=== PATIENT | female | born 1975 | race Caucasian/White ===

== ENCOUNTER 2021-10-05 15:08 | Inpatient (IN) ==
[2021-10-05] MEDS ORDERED: Naloxone 0.4 MG/ML INJ IVP PRN (20:30)
[2021-10-05] MEDS: Ringers Solution, Lactated 1,000 ML IVC SCH (21:29)
[2021-10-05 22:09] LABS: Basophils % 0.2 %; Hematocrit 36.1 % (35.3-44.9); Hemoglobin 11.5 g/dL (11.5-15.4); Immature Granulocytes % 0.4 % (0-4); Lymphocytes # 0.9 K/mcL (0.6-4.6); Lymphocytes % 9.3 %; Mean Corpuscular HGB Conc 31.9 g/dL (31.6-35.5); Mean Corpuscular Hemoglobin 31.7 pg (28.0-33.3); Mean Corpuscular Volume 99.4 fL (83.0-100.0); Mean Platelet Volume 9.5 fL (9.4-12.4); Monocytes # 0.5 K/mcL (0.0-1.3); Monocytes % 5.4 %; Neutrophils # 8.2 K/mcL (1.6-8.9); Platelet Count 138 K/mcL (140-400); Red Blood Count 3.63 M/mcL (3.82-4.97); Red Cell Distribution Width 18.1 % (11.5-14.5); Segmented Neutrophils % 84.7 %; White Blood Count 9.7 K/mcL (4.3-11.1)
[2021-10-05 22:15] LABS: VBG Ionized Calcium 1.02 mmol/L (1.15-1.35)
[2021-10-05 22:26] LABS: Calcium 7.2 mg/dL (8.6-10.3); Magnesium 1.8 mg/dL (1.6-2.6); Phosphorous 2.2 mg/dL (2.7-4.5); Potassium 3.4 mEq/L (3.5-5.1)
[2021-10-05] MEDS ORDERED: Acetaminophen 325 MG TABLET PO PRN (23:38)
[2021-10-05] MEDS: Norepinephrine 4 MG/254 ML IV.SOLN IVC SCH (23:52)
[2021-10-06] MEDS: *HR* Heparin 5,000 UNIT/ML VIAL SQ SCH ×3 (00:34→17:28)
[2021-10-06] MEDS: Calcium Gluconate 1gm/50mL 1 GM/50 ML BAG IVPB SCH ×2 (00:40→01:50)
[2021-10-06 04:56] LABS: Basophils % 0.1 %; Eosinophils % 0.1 %; Hematocrit 34.1 % (35.3-44.9); Hemoglobin 10.9 g/dL (11.5-15.4); Immature Granulocytes % 0.3 % (0-4); Lymphocytes # 0.8 K/mcL (0.6-4.6); Lymphocytes % 11.3 %; Mean Corpuscular Hemoglobin 32.1 pg (28.0-33.3); Mean Corpuscular Volume 100.3 fL (83.0-100.0); Mean Platelet Volume 9.8 fL (9.4-12.4); Monocytes # 0.5 K/mcL (0.0-1.3); Monocytes % 6.8 %; Neutrophils # 5.6 K/mcL (1.6-8.9); Platelet Count 136 K/mcL (140-400); Red Cell Distribution Width 18.3 % (11.5-14.5); Segmented Neutrophils % 81.4 %; White Blood Count 6.9 K/mcL (4.3-11.1)
[2021-10-06 05:09] LABS: VBG Ionized Calcium 1.19 mmol/L (1.15-1.35)
[2021-10-06 05:21] LABS: BUN/Creatinine Ratio 21 (6-26); Blood Urea Nitrogen 21 mg/dL (6-20); Calcium 7.8 mg/dL (8.6-10.3); Carbon Dioxide 24 mEq/L (23-29); Chloride 110 mEq/L (98-107); Glucose 98 mg/dL (70-105); Magnesium 2.4 mg/dL (1.6-2.6); Osmolality,Calculated 291 (280-300); Phosphorous 2.6 mg/dL (2.7-4.5); Potassium 4.1 mEq/L (3.5-5.1); Sodium 139 mEq/L (136-145); eGFR For African Americans > 60 (> 60); eGFR For Non-African Americans 59 (> 60)
[2021-10-06] MEDS: Ringers Solution, Lactated 1,000 ML IVC SCH ×2 (06:43→11:27)
[2021-10-06] MEDS: Loratadine 10 MG TABLET PO SCH (08:01)
[2021-10-06] MEDS: Cholecalciferol (D-3) 1,000 UNIT (25MCG) TABLET PO SCH (08:01)
[2021-10-06] MEDS: Piperacillin/Tazobactam 3.375 GM in 0.9 % Sodium Chloride Mini Bag 100 ML IVPB SCH ×2 (09:06→17:28)
[2021-10-06] MEDS: Norepinephrine 4 MG/254 ML IV.SOLN IVC SCH (12:57)
[2021-10-06] MEDS ORDERED: Lidocaine -MPF 1% 5 ML AMPUL INFILT ONE (14:01)
[2021-10-06] MEDS ORDERED: Vancomycin 1,250 MG/262.5 ML IV.SOLN IVPB ONE (16:00)
[2021-10-06] MEDS: Topiramate 100 MG TABLET PO SCH (21:25)
[2021-10-07 01:38] LABS: Basophils % 0.2 %; Eosinophils % 0.2 %; Hematocrit 38.3 % (35.3-44.9); Hemoglobin 12.4 g/dL (11.5-15.4); Immature Granulocytes % 0.3 % (0-4); Lymphocytes % 16.7 %; Mean Corpuscular HGB Conc 32.4 g/dL (31.6-35.5); Mean Corpuscular Hemoglobin 32.1 pg (28.0-33.3); Mean Corpuscular Volume 99.2 fL (83.0-100.0); Mean Platelet Volume 10.2 fL (9.4-12.4); Monocytes # 0.6 K/mcL (0.0-1.3); Monocytes % 10.7 %; Neutrophils # 4.2 K/mcL (1.6-8.9); Platelet Count 153 K/mcL (140-400); Red Blood Count 3.86 M/mcL (3.82-4.97); Red Cell Distribution Width 18.1 % (11.5-14.5); Segmented Neutrophils % 71.9 %; White Blood Count 5.8 K/mcL (4.3-11.1)
[2021-10-07 01:59] LABS: BUN/Creatinine Ratio 13 (6-26); Blood Urea Nitrogen 13 mg/dL (6-20); Calcium 8.4 mg/dL (8.6-10.3); Carbon Dioxide 27 mEq/L (23-29); Chloride 108 mEq/L (98-107); Glucose 90 mg/dL (70-105); Osmolality,Calculated 290 (280-300); Potassium 4.1 mEq/L (3.5-5.1); Sodium 140 mEq/L (136-145); eGFR For African Americans > 60 (> 60); eGFR For Non-African Americans > 60 (> 60)
[2021-10-07 02:01] LABS: Anisocytosis 1+ (Not Present); Large Platelets Present (Not Present); Platelet Estimate Normal (Normal)
[2021-10-07] MEDS: Norepinephrine 4 MG/254 ML IV.SOLN IVC SCH ×2 (07:51→13:12)
[2021-10-07] MEDS: *HR* Heparin 5,000 UNIT/ML VIAL SQ SCH ×3 (08:14→15:57)
[2021-10-07] MEDS: Piperacillin/Tazobactam 3.375 GM in 0.9 % Sodium Chloride Mini Bag 100 ML IVPB SCH ×3 (08:15→15:58)
[2021-10-07] MEDS: Loratadine 10 MG TABLET PO SCH (08:16)
[2021-10-07] MEDS: Cholecalciferol (D-3) 1,000 UNIT (25MCG) TABLET PO SCH (08:16)
[2021-10-07] MEDS: Albumin Human 5% 12.5 GM/250 ML IV.SOLN IVC SCH ×2 (10:53→11:37)
[2021-10-07] MEDS: Vancomycin 1,250 MG/262.5 ML IV.SOLN IVPB SCH ×2 (11:35→22:52)
[2021-10-07 14:33] LABS: Bilirubin,Urine Negative (Negative); Blood,Urine Trace (Negative); Clarity,Urine Clear (Clear); Color,Urine Light-Yellow (Yellow); Glucose,Urine (UA) Normal (Normal); Ketones,Urine Negative (Negative); Leukocyte Esterase,Urine Negative (Negative); Mucus,Urine Few per lpf (None-Few); Nitrite,Urine Negative (Negative); PH,Urine 6.5 pH Units (5.0-8.0); Protein,Urine Negative (Neg-Trace); RBC,Urine 0-3 per hpf (0-3); Specific Gravity,Urine 1.009 (1.010-1.025); Squamous Epithelial Cell,Urine Few per hpf (None-Few); Urobilinogen,Urine Normal (Normal); WBC,Urine 0-3 per hpf (0-3)
[2021-10-07 14:55] LABS: Basophils % 0.2 %; Eosinophils % 0.2 %; Hematocrit 34.5 % (35.3-44.9); Hemoglobin 11.3 g/dL (11.5-15.4); Immature Granulocytes % 0.4 % (0-4); Lymphocytes # 1.2 K/mcL (0.6-4.6); Lymphocytes % 23.5 %; Mean Corpuscular HGB Conc 32.8 g/dL (31.6-35.5); Mean Corpuscular Hemoglobin 32.6 pg (28.0-33.3); Mean Corpuscular Volume 99.4 fL (83.0-100.0); Mean Platelet Volume 10.8 fL (9.4-12.4); Monocytes # 0.5 K/mcL (0.0-1.3); Monocytes % 9.5 %; Neutrophils # 3.3 K/mcL (1.6-8.9); Platelet Count 132 K/mcL (140-400); Red Blood Count 3.47 M/mcL (3.82-4.97); Red Cell Distribution Width 17.9 % (11.5-14.5); Segmented Neutrophils % 66.2 %
[2021-10-07 15:42] LABS: BUN/Creatinine Ratio 13 (6-26); Blood Urea Nitrogen 11 mg/dL (6-20); Calcium 7.7 mg/dL (8.6-10.3); Carbon Dioxide 25 mEq/L (23-29); Chloride 109 mEq/L (98-107); Glucose 133 mg/dL (70-105); Magnesium 1.8 mg/dL (1.6-2.6); Osmolality,Calculated 289 (280-300); Phosphorous 2.7 mg/dL (2.7-4.5); Potassium 4.1 mEq/L (3.5-5.1); Sodium 139 mEq/L (136-145); eGFR For African Americans > 60 (> 60); eGFR For Non-African Americans > 60 (> 60)
[2021-10-07] MEDS ORDERED: Vancomycin 1,250 MG/262.5 ML IV.SOLN IVPB SCH (16:00)
[2021-10-07 16:06] LABS: VBG HCO3 25 mEq/L (21-27); VBG PCO2 50 mmHg (41-51); VBG PH 7.31 pH Units (7.32-7.42); VBG PO2 105 mmHg (25-50)
[2021-10-07] MEDS: Topiramate 100 MG TABLET PO SCH (21:13)
[2021-10-08] MEDS: Piperacillin/Tazobactam 3.375 GM in 0.9 % Sodium Chloride Mini Bag 100 ML IVPB SCH ×4 (00:42→22:55)
[2021-10-08] MEDS: *HR* Heparin 5,000 UNIT/ML VIAL SQ SCH ×4 (00:42→22:56)
[2021-10-08] MEDS: Dexmedetomidine HCl 400 MCG/100 ML MLS IVC SCH (03:41)
[2021-10-08] MEDS: Loratadine 10 MG TABLET PO SCH (08:20)
[2021-10-08] MEDS: Cholecalciferol (D-3) 1,000 UNIT (25MCG) TABLET PO SCH (08:20)
[2021-10-08] MEDS: Norepinephrine 4 MG/254 ML IV.SOLN IVC SCH ×2 (08:25→16:31)
[2021-10-08 10:32] LABS: White Blood Count 4.9 K/mcL (4.3-11.1)
[2021-10-08 10:33] LABS: Basophils % 0.2 %; Eosinophils % 0.4 %; Hematocrit 35.3 % (35.3-44.9); Hemoglobin 11.3 g/dL (11.5-15.4); Immature Granulocytes % 0.6 % (0-4); Lymphocytes % 21.2 %; Mean Corpuscular Hemoglobin 32.2 pg (28.0-33.3); Mean Corpuscular Volume 100.6 fL (83.0-100.0); Mean Platelet Volume 10.7 fL (9.4-12.4); Monocytes # 0.4 K/mcL (0.0-1.3); Neutrophils # 3.4 K/mcL (1.6-8.9); Platelet Count 154 K/mcL (140-400); Red Blood Count 3.51 M/mcL (3.82-4.97); Red Cell Distribution Width 17.9 % (11.5-14.5); Segmented Neutrophils % 69.6 %
[2021-10-08 10:43] LABS: Alanine Aminotransferase 46 Units/L (7-52); Albumin 3.2 g/dL (3.5-5.7); Albumin/Globulin Ratio 1.1 (1.1-2.2); Alkaline Phosphatase 136 Units/L (34-104); Aspartate Amino Transferase 42 Units/L (13-39); BUN/Creatinine Ratio 14 (6-26); Bilirubin,Total 0.5 mg/dL (0.3-1.0); Blood Urea Nitrogen 13 mg/dL (6-20); Carbon Dioxide 24 mEq/L (23-29); Chloride 111 mEq/L (98-107); Globulin 2.8 g/dL (2.4-3.5); Glucose 118 mg/dL (70-105); Osmolality,Calculated 293 (280-300); Potassium 4.1 mEq/L (3.5-5.1); Sodium 141 mEq/L (136-145); Vancomycin,Trough 13 mcg/mL (5-10); eGFR For African Americans > 60 (> 60); eGFR For Non-African Americans > 60 (> 60)
[2021-10-08 10:55] LABS: Platelet Estimate Normal (Normal)
[2021-10-08 10:56] LABS: Anisocytosis 1+ (Not Present)
[2021-10-08] MEDS ORDERED: Acetaminophen 325 MG TABLET PO PRN (11:12)
[2021-10-08] MEDS ORDERED: hydrOXYzine pamoate 25 MG CAPSULE PO PRN (11:12)
[2021-10-08] MEDS ORDERED: haloperidoL 1 MG TABLET PO PRN (11:12)
[2021-10-08] MEDS: Vancomycin 1,250 MG/262.5 ML IV.SOLN IVPB SCH ×2 (11:23→22:54)
[2021-10-08] MEDS: ARIPiprazole 10 MG TABLET PO SCH (16:54)
[2021-10-08] MEDS ORDERED: Topiramate 100 MG TABLET PO SCH (21:00)
[2021-10-08] MEDS: risperiDONE 1 MG TABLET PO SCH (21:57)
[2021-10-08] MEDS: Topiramate 25 MG CAP.SPRINK PO SCH (21:57)
[2021-10-09] MEDS: Dexmedetomidine HCl 400 MCG/100 ML MLS IVC SCH (07:51)
[2021-10-09] MEDS: Piperacillin/Tazobactam 3.375 GM in 0.9 % Sodium Chloride Mini Bag 100 ML IVPB SCH ×2 (07:52→17:06)
[2021-10-09] MEDS: Norepinephrine 4 MG/254 ML IV.SOLN IVC SCH (07:53)
[2021-10-09] MEDS: Topiramate 25 MG CAP.SPRINK PO SCH ×2 (09:06→19:59)
[2021-10-09] MEDS: *HR* Heparin 5,000 UNIT/ML VIAL SQ SCH ×2 (09:06→17:06)
[2021-10-09] MEDS: Cholecalciferol (D-3) 1,000 UNIT (25MCG) TABLET PO SCH (09:06)
[2021-10-09] MEDS: Loratadine 10 MG TABLET PO SCH (09:06)
[2021-10-09] MEDS: risperiDONE 1 MG TABLET PO SCH ×2 (09:06→19:59)
[2021-10-09] MEDS: Docusate Oral Soln 100 MG/10 ML UDC PO SCH (09:07)
[2021-10-09] MEDS: FLUoxetine HCl Oral Soln 20 MG/5 ML UDC PO SCH (09:07)
[2021-10-09 10:09] LABS: Hematocrit 34.1 % (35.3-44.9); Hemoglobin 10.8 g/dL (11.5-15.4); Mean Corpuscular HGB Conc 31.7 g/dL (31.6-35.5); Mean Corpuscular Hemoglobin 31.8 pg (28.0-33.3); Mean Corpuscular Volume 100.3 fL (83.0-100.0); Mean Platelet Volume 10.3 fL (9.4-12.4); Neutrophils # 3.7 K/mcL (1.6-8.9); Platelet Count 145 K/mcL (140-400); Red Cell Distribution Width 17.7 % (11.5-14.5); White Blood Count 5.2 K/mcL (4.3-11.1)
[2021-10-09 10:27] LABS: BUN/Creatinine Ratio 14 (6-26); Blood Urea Nitrogen 12 mg/dL (6-20); Calcium 8.2 mg/dL (8.6-10.3); Carbon Dioxide 25 mEq/L (23-29); Chloride 111 mEq/L (98-107); Glucose 137 mg/dL (70-105); Osmolality,Calculated 294 (280-300); Potassium 3.9 mEq/L (3.5-5.1); Sodium 141 mEq/L (136-145); eGFR For African Americans > 60 (> 60); eGFR For Non-African Americans > 60 (> 60)
[2021-10-09 10:38] LABS: Eosinophils # 0.2 K/mcL (0.0-0.6); Lymphocytes # 1.1 K/mcL (0.6-4.6); Monocytes # 0.1 K/mcL (0.0-1.3); Platelet Estimate Normal (Normal)
[2021-10-09] MEDS: Vancomycin 1,250 MG/262.5 ML IV.SOLN IVPB SCH ×2 (11:19→22:41)
[2021-10-09] MEDS: ARIPiprazole 10 MG TABLET PO SCH (17:07)
[2021-10-10] MEDS: *HR* Heparin 5,000 UNIT/ML VIAL SQ SCH ×3 (00:18→16:39)
[2021-10-10] MEDS: Piperacillin/Tazobactam 3.375 GM in 0.9 % Sodium Chloride Mini Bag 100 ML IVPB SCH ×3 (00:18→16:32)
[2021-10-10] MEDS ORDERED: 0.9 % Sodium Chloride 1,000 ML IVC SCH ×2 (10:00→13:15)
[2021-10-10] MEDS: Cholecalciferol (D-3) 1,000 UNIT (25MCG) TABLET PO SCH (10:42)
[2021-10-10] MEDS: risperiDONE 1 MG TABLET PO SCH ×2 (10:42→21:09)
[2021-10-10] MEDS: Docusate Oral Soln 100 MG/10 ML UDC PO SCH (10:42)
[2021-10-10] MEDS: FLUoxetine HCl Oral Soln 20 MG/5 ML UDC PO SCH (10:42)
[2021-10-10] MEDS: Loratadine 10 MG TABLET PO SCH (10:42)
[2021-10-10] MEDS: Vancomycin 1,250 MG/262.5 ML IV.SOLN IVPB SCH (11:58)
[2021-10-10] MEDS: Topiramate 25 MG CAP.SPRINK PO SCH ×2 (11:59→21:08)
[2021-10-10 13:49] LABS: BUN/Creatinine Ratio 14 (6-26); Blood Urea Nitrogen 14 mg/dL (6-20); eGFR For African Americans > 60 (> 60); eGFR For Non-African Americans 58 (> 60)
[2021-10-10] MEDS: ARIPiprazole 10 MG TABLET PO SCH (16:39)
[2021-10-11] MEDS: Piperacillin/Tazobactam 3.375 GM in 0.9 % Sodium Chloride Mini Bag 100 ML IVPB SCH ×2 (00:41→02:45)
[2021-10-11] MEDS: Vancomycin 1,250 MG/262.5 ML IV.SOLN IVPB SCH ×2 (00:45→11:32)
[2021-10-11] MEDS: *HR* Heparin 5,000 UNIT/ML VIAL SQ SCH ×3 (00:51→08:02)
[2021-10-11 06:24] LABS: Hematocrit 29.2 % (35.3-44.9); Hemoglobin 9.7 g/dL (11.5-15.4); Immature Granulocytes % 1.2 % (0-4); Lymphocytes % 19.1 %; Mean Corpuscular HGB Conc 33.2 g/dL (31.6-35.5); Mean Corpuscular Hemoglobin 32.7 pg (28.0-33.3); Mean Corpuscular Volume 98.3 fL (83.0-100.0); Mean Platelet Volume 10.6 fL (9.4-12.4); Monocytes % 8.8 %; Platelet Count 200 K/mcL (140-400); Red Blood Count 2.97 M/mcL (3.82-4.97); Red Cell Distribution Width 18.2 % (11.5-14.5); Segmented Neutrophils % 66.4 %; White Blood Count 4.9 K/mcL (4.3-11.1)
[2021-10-11 06:25] LABS: Basophils % 0.6 %; Eosinophils # 0.2 K/mcL (0.0-0.6); Eosinophils % 3.9 %; Lymphocytes # 0.9 K/mcL (0.6-4.6); Monocytes # 0.4 K/mcL (0.0-1.3); Neutrophils # 3.2 K/mcL (1.6-8.9)
[2021-10-11 06:42] LABS: BUN/Creatinine Ratio 14 (6-26); Blood Urea Nitrogen 13 mg/dL (6-20); Calcium 7.9 mg/dL (8.6-10.3); Carbon Dioxide 24 mEq/L (23-29); Chloride 111 mEq/L (98-107); Glucose 122 mg/dL (70-105); Osmolality,Calculated 291 (280-300); Potassium 3.8 mEq/L (3.5-5.1); Sodium 140 mEq/L (136-145); eGFR For African Americans > 60 (> 60); eGFR For Non-African Americans > 60 (> 60)
[2021-10-11 06:50] VITALS: TEMP 98
[2021-10-11] MEDS: Topiramate 100 MG TABLET PO SCH (07:03)
[2021-10-11] MEDS: Cholecalciferol (D-3) 1,000 UNIT (25MCG) TABLET PO SCH (08:01)
[2021-10-11] MEDS: Docusate Oral Soln 100 MG/10 ML UDC PO SCH (08:02)
[2021-10-11] MEDS: risperiDONE 1 MG TABLET PO SCH (08:02)
[2021-10-11] MEDS: FLUoxetine HCl Oral Soln 20 MG/5 ML UDC PO SCH (08:02)
[2021-10-11] MEDS: Topiramate 25 MG CAP.SPRINK PO SCH (08:02)
[2021-10-11] MEDS: Loratadine 10 MG TABLET PO SCH (08:02)
[2021-10-11 11:42] VITALS: BP 98/54; PULSE 61; O2SAT 95
[2021-10-11] MEDS ORDERED: Piperacillin/Tazobactam 3.375 GM in 0.9 % Sodium Chloride Mini Bag 100 ML IVPB SCH (12:00)
== END 2021-10-11 14:38 | disposition home or self-care (01) | DRG 871 ==
LOC: 2NENU → 2NNU 23:47 → 2NENU 10-09 11:22
PROVIDERS: ADMIT Internal Medicine; ATTEND Internal Medicine

== ENCOUNTER 2021-12-20 23:05 | Inpatient (IN) ==
[2021-12-21] MEDS ORDERED: Naloxone 0.4 MG/ML INJ IVP PRN (01:36)
[2021-12-21] MEDS ORDERED: Ondansetron 4 MG/2 ML VIAL IVP PRN (01:36)
[2021-12-21] MEDS ORDERED: Ipratropium/Albuterol Neb 3 ML IH PRN (01:39)
[2021-12-21 04:29] LABS: Bilirubin,Urine Negative (Negative); Blood,Urine Negative (Negative); Clarity,Urine Clear (Clear); Color,Urine Yellow (Yellow); Glucose,Urine (UA) Normal (Normal); Ketones,Urine Negative (Negative); Leukocyte Esterase,Urine Negative (Negative); Nitrite,Urine Negative (Negative); Protein,Urine Trace mg/dL (Neg-Trace); Specific Gravity,Urine 1.028 (1.010-1.025); Urobilinogen,Urine Normal (Normal)
[2021-12-21 06:03] LABS: Basophils # 0.1 K/mcL (0.0-0.2); Basophils % 1.2 %; Eosinophils # 0.1 K/mcL (0.0-0.6); Eosinophils % 1.6 %; Hematocrit 39.9 % (35.3-44.9); Hemoglobin 12.9 g/dL (11.5-15.4); Immature Granulocytes % 0.4 % (0-4); Lymphocytes # 0.9 K/mcL (0.6-4.6); Lymphocytes % 17.8 %; Mean Corpuscular HGB Conc 32.3 g/dL (31.6-35.5); Mean Corpuscular Hemoglobin 33.5 pg (28.0-33.3); Mean Corpuscular Volume 103.6 fL (83.0-100.0); Mean Platelet Volume 9.6 fL (9.4-12.4); Monocytes # 0.6 K/mcL (0.0-1.3); Monocytes % 11.2 %; Neutrophils # 3.5 K/mcL (1.6-8.9); Platelet Count 234 K/mcL (140-400); Red Blood Count 3.85 M/mcL (3.82-4.97); Red Cell Distribution Width 15.5 % (11.5-14.5); Segmented Neutrophils % 67.8 %; White Blood Count 5.1 K/mcL (4.3-11.1)
[2021-12-21 06:08] LABS: INR 1.2; Prothrombin Time 13.8 Seconds (9.4-12.1)
[2021-12-21 06:10] LABS: Activated Partial Thrombo Time 27.4 Seconds (26.0-36.0)
[2021-12-21 06:47] LABS: Alanine Aminotransferase 24 Units/L (7-52); Albumin 3.1 g/dL (3.5-5.7); Alkaline Phosphatase 111 Units/L (34-104); Aspartate Amino Transferase 25 Units/L (13-39); BUN/Creatinine Ratio 23 (6-26); Bilirubin,Total 0.4 mg/dL (0.3-1.0); Blood Urea Nitrogen 21 mg/dL (6-20); Calcium 8.5 mg/dL (8.6-10.3); Carbon Dioxide 26 mEq/L (23-29); Chloride 110 mEq/L (98-107); Globulin 3.1 g/dL (2.4-3.5); Glucose 101 mg/dL (70-105); Osmolality,Calculated 299 (280-300); Phosphorous 5.3 mg/dL (2.7-4.5); Potassium 3.7 mEq/L (3.5-5.1); Sodium 143 mEq/L (136-145); Total Protein 6.2 g/dL (6.4-8.9); eGFR For African Americans > 60 (> 60); eGFR For Non-African Americans > 60 (> 60)
[2021-12-21] MEDS ORDERED: 0.9 % Sodium Chloride 1,000 ML IVC SCH (10:45)
[2021-12-21] MEDS ORDERED: hydrOXYzine pamoate 25 MG CAPSULE PO PRN (16:49)
[2021-12-21] MEDS ORDERED: haloperidoL 1 MG TABLET PO PRN (16:49)
[2021-12-21] MEDS ORDERED: Acetaminophen 325 MG TABLET PO PRN (16:51)
[2021-12-21] MEDS: ARIPiprazole 10 MG TABLET PO SCH (21:14)
[2021-12-21] MEDS: risperiDONE 1 MG TABLET PO SCH (21:14)
[2021-12-21] MEDS: Topiramate 100 MG TABLET PO SCH (21:14)
[2021-12-22] MEDS ORDERED: Albumin 25% 25gram/100mL 25 GM/100 ML IV.SOLN IVPB ONE (01:56)
[2021-12-22] MEDS ORDERED: Clotrimazole 1% CRM 15 GM TUBE TP SCH (09:00)
[2021-12-22] MEDS: FLUoxetine 20 MG CAPSULE PO SCH (09:46)
[2021-12-22] MEDS: Topiramate 100 MG TABLET PO SCH ×2 (09:46→21:49)
[2021-12-22] MEDS: Cholecalciferol (D-3) 1,000 UNIT (25MCG) TABLET PO SCH (09:46)
[2021-12-22] MEDS: Loratadine 10 MG TABLET PO SCH (09:46)
[2021-12-22] MEDS: risperiDONE 1 MG TABLET PO SCH ×2 (09:46→21:49)
[2021-12-22] MEDS: *HR* Heparin 5,000 UNIT/ML VIAL SQ SCH (17:38)
[2021-12-22] MEDS: ARIPiprazole 10 MG TABLET PO SCH (21:49)
[2021-12-23] MEDS: *HR* Heparin 5,000 UNIT/ML VIAL SQ SCH ×2 (05:52→17:07)
[2021-12-23] MEDS: Cholecalciferol (D-3) 1,000 UNIT (25MCG) TABLET PO SCH (09:30)
[2021-12-23] MEDS: FLUoxetine 20 MG CAPSULE PO SCH (09:31)
[2021-12-23] MEDS: Topiramate 100 MG TABLET PO SCH ×2 (09:31→21:42)
[2021-12-23] MEDS: risperiDONE 1 MG TABLET PO SCH ×2 (09:31→21:42)
[2021-12-23] MEDS: Loratadine 10 MG TABLET PO SCH (09:31)
[2021-12-23] MEDS: ARIPiprazole 10 MG TABLET PO SCH (21:42)
[2021-12-24] MEDS: *HR* Heparin 5,000 UNIT/ML VIAL SQ SCH ×2 (05:43→18:41)
[2021-12-24] MEDS: Topiramate 100 MG TABLET PO SCH ×2 (09:17→22:07)
[2021-12-24] MEDS: Loratadine 10 MG TABLET PO SCH (09:18)
[2021-12-24] MEDS: risperiDONE 1 MG TABLET PO SCH ×2 (09:18→22:07)
[2021-12-24] MEDS: Cholecalciferol (D-3) 1,000 UNIT (25MCG) TABLET PO SCH (09:18)
[2021-12-24] MEDS: FLUoxetine 20 MG CAPSULE PO SCH (09:19)
[2021-12-24] MEDS: ARIPiprazole 10 MG TABLET PO SCH (22:07)
[2021-12-25] MEDS: *HR* Heparin 5,000 UNIT/ML VIAL SQ SCH (06:45)
[2021-12-25] MEDS: Topiramate 100 MG TABLET PO SCH (09:23)
[2021-12-25] MEDS: FLUoxetine 20 MG CAPSULE PO SCH (09:23)
[2021-12-25] MEDS: Cholecalciferol (D-3) 1,000 UNIT (25MCG) TABLET PO SCH (09:23)
[2021-12-25] MEDS: Loratadine 10 MG TABLET PO SCH (09:23)
[2021-12-25] MEDS: risperiDONE 1 MG TABLET PO SCH (09:23)
[2021-12-25 10:39] VITALS: BP 102/66; PULSE 56; TEMP 98.1; O2SAT 100
== END 2021-12-25 15:30 | disposition other institution (70) | DRG 535 ==
LOC: 3BNU → SUATTDRO 12-21 00:42
PROVIDERS: ADMIT Internal Medicine; ATTEND Internal Medicine